=== PATIENT | female | born 1975 | race American Indian/Alaskan Native ===

== ENCOUNTER 2018-10-04 10:58 | Outpatient (CLI) | payer BC ==
--- NOTE | 2018-10-07 10:57 | Mammography Report ---
DIGITAL SCREENING MAMMOGRAM WITH CAD, 10/04/2018 INDICATION: Routine screening mammography. TECHNIQUE: Digital bilateral 2D mammography was obtained in the craniocaudal and mediolateral obliq ue projections. This examination was interpreted with the benefit of Computer-Aided Detection analysi s. COMPARISON: Baseline mammogram FINDINGS: Breast Density: The breasts are heterogeneously dense, which may obscure small masses. There are multiple well-circumscribed masses in the upper outer quadrant of the left breast, the larg est of which measures 2.5 cm. I suspect these will represent multiple cysts but should be further sarita luated with ultrasound. Additionally there are grouped microcalcifications in the left upper outer qu adrant which will require magnification views. There is a 2.5 cm partially well-circumscribed mass in the upper outer quadrant of the right breast, posterior depth. This should be further evaluated with right breast ultrasound. IMPRESSION: Bilateral breast masses, most likely representing breast cysts. This should be confirmed with bilateral breast ultrasound. Grouped microcalcifications are present in the left upper outer quadrant, posterior depth. Magnificat ion views are recommended. BI-RADS Category 0: Incomplete. Needs additional imaging evaluation and/or prior mammograms for ulises rison. A "normal" or negative report should not discourage follow up or biopsy of a clinically significant f inding. A written summary of these findings will be mailed to the patient. The patient will be entered into a mammography reporting system which will generate a reminder letter for the patient's next appointmen t at the appropriate interval. The [employer] recommends yearly mammograms starting at age 40 and continuing as l rell as a woman is in good health. Breast MRI is recommended for women with an approximate 20-25% or greater lifetime risk of breast cancer, including women with a strong family history of breast or ova gonzález cancer or who have been treated for Hodgkin's disease. Signer Name: Swapna Fam MD Signed: 10/07/2018 10:52 AM Workstation Name: [id number]
== END 2018-10-04 10:59 | disposition home or self-care (01) ==
LOC: SPVWC 10:58
PROVIDERS: ATTEND Family Medicine
DX: Z12.31 Encounter for screening mammogram for malignant neoplasm of breast (principal)
CPT/HCPCS: 77067

== ENCOUNTER 2019-05-05 16:11 | Outpatient (CLI) | payer BC ==
[2019-05-05 16:31] LABS: Basophils # (Auto) 0.1 K/mm3 (0.0-0.1); Basophils % (Auto) 0.7 % (0.0-1.8); Eosinophils # (Auto) 0.2 K/mm3 (0.0-0.4); Eosinophils % (Auto) 1.5 % (0.0-4.3); Hematocrit 32.3 % (30.3-42.9); Hemoglobin 10.4 gm/dl (10.1-14.3); Lymphocytes # (Auto) 1.4 K/mm3 (1.2-5.4); Lymphocytes % (Auto) 13.9 % (13.4-35.0); Mean Corpuscular HGB Conc 32 % (30-34); Mean Corpuscular Volume 82 fl (79-97); Monocytes # (Auto) 0.6 K/mm3 (0.0-0.8); Monocytes % (Auto) 6.3 % (0.0-7.3); Platelet Count 365 K/mm3 (140-440); Red Blood Count 3.96 M/mm3 (3.65-5.03); Red Cell Distribution Width 16.4 % (13.2-15.2)
[2019-05-05 16:52] LABS: Calcium 9.1 mg/dL (8.4-10.2); Chol/HDL Ratio 3.14 %
== END 2019-05-05 16:12 | disposition home or self-care (01) ==
LOC: LAB 16:11
PROVIDERS: ATTEND Specialist
DX: I63.22 Cerebral infarction due to unspecified occlusion or stenosis of basilar artery (principal)
CPT/HCPCS: 36415; 80053; 80061; 85025